=== PATIENT | male | born 1980 | race Caucasian/White ===

== ENCOUNTER 2018-12-13 17:29 | Emergency (ER) | payer MEDICAID ==
[~2018-12-13] VITALS: Ht 175.3 cm; Wt 102.7 kg
[2018-12-13] MEDS ORDERED: metoclopramide 10mg tablet PO ONE (18:50)
[2018-12-13] MEDS ORDERED: ketorolac trometh inj. 60 MG/2 ML VIAL IM ONE (18:50)
[2018-12-13] MEDS ORDERED: acetaminophen 325mg tablet PO ONE (18:50)
[2018-12-13] MEDS ORDERED: LORazepam 1 MG tablet PO ONE (18:50)
[2018-12-13 19:00] VITALS: BP 134/85
== END 2018-12-13 19:02 | disposition home or self-care (01) ==
LOC: ER 17:31
DX: G89.29 Other chronic pain (principal); G43.909 Migraine, unspecified, not intractable, without status migrainosus; M54.2 Cervicalgia; F41.9 Anxiety disorder, unspecified; F41.0 Panic disorder [episodic paroxysmal anxiety]
CPT/HCPCS: 96372; 99284; J1885; J8597